=== PATIENT | male | born 1990 | race Two or more races ===

== ENCOUNTER 2022-01-15 07:25 | Emergency (ER) | payer OTHER ==
[~2022-01-15] VITALS: Ht 180.3 cm; Wt 83.9 kg
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
--- NOTE | 2022-01-15 07:45 | NUR ---
EMT AT BEDSIDE CLEANING LAC TO HEAD.
[2022-01-15] MEDS ORDERED: LIDOCAINE 1%-EPI 1:100,000 20 ML VIAL ONE (07:48)
--- NOTE | 2022-01-15 07:48 | NUR ---
DR FRANCIS AT BEDSIDE W/ PATIENT.
[2022-01-15] MEDS ORDERED: TDAP [DIPH/PERTUSSIS/TET] 0.5 ML VIAL IM ONE (07:50)
[2022-01-15] MEDS: TDAP [DIPH/PERTUSSIS/TET] 0.5 ML VIAL IM ONE (07:52)
--- NOTE | 2022-01-15 07:54 | NUR ---
PT TAKEN TO CT VIA [facility]
--- NOTE | 2022-01-15 07:58 | NUR ---
PT RETURNED TO ER BED [address]
--- NOTE | 2022-01-15 07:58 | NUR ---
PT RETURNED FROM CT SCAN. TDAP IM GIVEN ON LEFT DELTOID. NO ADVERSE REACTION NOTED.
--- NOTE | 2022-01-15 08:23 | NUR ---
Patient discharged to home in stable condition. Written and verbal after care instructions given. Patient verbalizes understanding of instruction.
[2022-01-15 08:25] VITALS: BP 140/78
== END 2022-01-15 08:27 | disposition home or self-care (01) ==
LOC: ER 07:30
DX: S01.01XA Laceration without foreign body of scalp, initial encounter (principal); R51.9 Headache, unspecified; W22.8XXA Striking against or struck by other objects, initial encounter; Y93.89 Activity, other specified; Y92.89 Other specified places as the place of occurrence of the external cause; Y99.8 Other external cause status
CPT/HCPCS: 12002; 70450; 90471; 90715; 99284; A6403; J3490